=== PATIENT | male | born 1970 | race Caucasian/White ===

== ENCOUNTER 2018-11-05 18:58 | Observation (INO) ==
[2018-11-05 19:29] LABS: BASO# 0.02 X1000 (0.0-0.2); BASO% 0.1 % (0.0-0.8); EOS# 0.02 X1000 (0.0-0.7); EOS% 0.1 % (0.0-10.0); HEMATOCRIT 40.2 % (42.0-52.0); IMM GRAN# 0.06 X1000 (0.0-0.04); IMM GRAN% 0.4 % (0.0-0.5); LYMPH# 0.84 X1000 (1.2-3.4); LYMPH% 5.4 % (20.5-51.1); MCH 30.2 PG (27-31); MCHC 34.8 g/dL (33-37); MCV 86.6 FL (81-99); MONO# 0.99 X1000 (0.11-0.59); MONO% 6.3 % (1.7-9.3); MPV 10.6 FL (7.4-10.4); NEUT# 13.71 X1000 (1.4-6.5); NEUT% 87.7 % (42.2-75.2); PLT 279 X1000 (130-400); RBC 4.64 XMIL (4.7-6.1); RDW 13.5 % (11.5-14.5); WBC 15.64 X1000 (4.8-10.8)
[2018-11-05 19:59] LABS: AGAP 18; BUN 20 mg/dL (8-22); CALCIUM 9.5 mg/dL (8.8-10.2); CHLORIDE 97 mmol/L (98-107); COSMO 277; CREATININE 1.1 mg/dL (0.7-1.2); ESTIMATED GFR > 60; GLUCOSE 140 mg/dL (70-104); POTASSIUM 3.2 mmol/L (3.5-5.1); SODIUM 136 mmol/L (136-145); TCO2 21 mmol/L (25-35); TOTAL BILIRUBIN 0.58 mg/dL (0.20-1.00)
[2018-11-05 20:00] LABS: ALB/GLOB RATIO 0.9; ALBUMIN 3.8 g/dL (3.5-5.0); ALKALINE PHOSPHATASE 95 U/L (32-122); GOT 13 U/L (10-34); GPT 17 U/L (10-44)
[2018-11-05] MEDS ORDERED: KLOR-CON PO ONE (20:46)
[2018-11-05] MEDS ORDERED: NS 1,000 ML IV ONE (21:22)
[2018-11-05] MEDS ORDERED: VANCOMYCIN 1 GM/NS 1 GM/250 ML IVPB IV ONE ×2 (21:23→22:08)
--- NOTE | 2018-11-05 21:46 | PROVIDER DOCUMENTATION ---
This chart was entered by Farida Nguyen Scribe, acting as scribe for Julia Ryan MD. HPI-Rash/Wound/ReCheck - General Chief Complaint: Male Stated Complaint: MALE Time Seen by Provider: 11/05/18 20:41 Source: patient Allergies/Adverse Reactions: Allergies Allergy/AdvReac Type Severity Reaction Status Date / Time No Known Allergies Allergy Verified 11/05/18 21:36 Home Medications: Home Medication List Medication Instructions Recorded Confirmed Last Taken Type Varenicline [Chantix] 0.5 mg PO BID 01/22/18 01/22/18 Unknown History Colchicine [Colcrys] 0.6 mg PO DAILY #30 tab 01/25/18 Unknown Rx Meloxicam [Mobic] 7.5 mg PO DAILY #30 tab 01/25/18 Unknown Rx Methylprednisolone [Medrol Dosepak] 4 mg PO DIRECTED #1 pkg 01/25/18 Unknown Rx - History of Present Illness-Dermatology Nature of Presenting Problem: pt is a 48 yr old male presenting with abscess to low abdomen, suprapubic area. pt reports he had shaved the area approx 1 month ago, after shaving he developed a bump that grew larger and more painful, pt went to ER 2 days ago and was prescribed clindamycin, pt reports no improvement, area has become even larger, redder and more painful since beginning abx. Denies any fevers Location: reports: other (low abdomen, pubis) Quality: reports: painful Severity: reports: severe Onset/Duration: reports: gradual Timing: reports: changing over time, getting worse Context/Associated Symptoms: reports: abscess Identifiable cause?: No Exposure: reports: unknown cause Locality of Occurance: Home Similar Symptoms Previously?: Yes Recently seen or treated by another doctor?: Yes (seen 2 days ago at [facility] for same) - Recheck Treated days ago.: 2 Antibiotics given: prescription Symptoms since procedure:: reports: pain, fever/chills, redness. denies: discharge, numbness Review of Systems - Adult - REVIEW OF SYSTEMS - ADULT Constitutional: reports: chills, fatique. denies: fever Eyes: reports: no symptoms reported Ears, Nose, Mouth & Throat: reports: no symptoms reported Cardiovascular: reports: no symptoms reported Respiratory: reports: no symptoms reported Gastrointestinal: reports: no symptoms reported Genitourinary: reports: no symptoms reported Musculoskeletal: reports: no symptoms reported Integumentary: reports: skin sores/ulcer Neurological: reports: no symptoms reported Psychiatric: reports: no symptoms reported Endocrine: reports: no symptoms reported Hematologic/Lymphatic: reports: no symptoms reported Allergic/Immunologic: reports: no symptoms reported All Other Systems: Reviewed and Negative Past History - Adult - PAST MEDICAL HISTORY-ADULT Review of Records: reports: Old Records Reviewed, Nursing Assessment Review, Medications Reviewed, Social history reviewed & non-contributory. Major Childhood Illnesses: reports: denies history Cardiovascular: reports: denies history Respiratory: reports: denies history Gastrointestinal: reports: denies history Obstetrical/Gynecological: reports: denies history Genitourinary: reports: denies history Musculoskeletal: reports: denies history Neurological: reports: denies history Endocrine/Immune: reports: denies history Other Conditions: reports: denies history - PRIOR SURGERIES/PROCEDURES Surgical/Procedure History: reports: orthopedic (extremity) (knee scope), other - IMMUNIZATION STATUS Childhood Immunizations: See Nurse Assessment Flu Vaccine: See Nurse Assessment - FAMILY HISTORY Family History: reviewed, not pertinent - SOCIAL HISTORY Living Situation: friend Physical Exam-General - PHYSICAL EXAM-ADULT Initial Vital Signs Reviewed: Yes - CONSTITUTIONAL General Appearance: alert, no apparent distress, obese - EYES Eyes: PERRL/EOMI - HEAD, EARS, NOSE, MOUTH & THROAT HENMT: normocephalic/atraumatic, moist mucous membranes - NECK Neck: non-tender, full range of motion, supple, normal inspection - RESPIRATORY Respiratory: chest non-tender, lungs clear, normal breath sounds, no respiratory distress, no accessory muscle use - CARDIOVASCULAR Cardiovascular: normal peripheral pulses, tachycardia - GASTROINTESTINAL (ABDOMEN) Abdominal Exam: normal bowel sounds, soft, tenderness (around cellulitis) - MUSCULOSKELETAL Back Exam: normal inspection Extremity: normal range of motion, normal inspection - SKIN Integumentary: warm/dry, erythema, tenderness, warm, other (large area of warmth, erythema and induration noted to pannus and right low abdomen, with multiple scabs in area, no drainage or fluctuance noted to area.) - NEUROLOGIC Neurologic: grossly normal - PSYCHIATRIC Psych/Mental Status: normal mood/affect, oriented x 3 Progress - PLAN OF CARE/RESULTS Progress/Plan/Lab Results: Vital Signs - 8 hr 07/11/19 19:10 Temperature 98.9 F Pulse Rate 116 H Respiratory Rate 20 Blood Pressure 143/88 O2 Sat by Pulse Oximetry 97 Laboratory Results - last 24 hr 11/05/18 11/05/18 19:11 19:11 WBC 15.64 H RBC 4.64 L Hgb 14.0 Hct 40.2 L MCV 86.6 MCH 30.2 MCHC 34.8 RDW Std Deviation 13.5 Plt Count 279 MPV 10.6 H Immature Gran % (Auto) 0.4 Neut % (Auto) 87.7 H Lymph % (Auto) 5.4 L Lawrence % (Auto) 6.3 Eos % (Auto) 0.1 Baso % (Auto) 0.1 Immature Gran # (Auto) 0.06 H Neut # (Auto) 13.71 H Lymph # (Auto) 0.84 L Lawrence # (Auto) 0.99 H Eos # (Auto) 0.02 Baso # (Auto) 0.02 Sodium 136 Potassium 3.2 L Chloride 97 L Carbon Dioxide 21 L Anion Gap 18 BUN 20 Creatinine 1.1 Estimated GFR/1.73 m2 > 60 BUN/Creatinine Ratio 18 Glucose 140 H Calculated Osmolality 277 Calcium 9.5 Total Bilirubin 0.58 AST 13 ALT 17 Alkaline Phosphatase 95 Total Protein 8.0 Albumin 3.8 Globulin 4.2 Albumin/Globulin Ratio 0.9 Orders Category Date Time Status BLOOD CULTURE [BLDCUL] Stat Lab 11/05/18 19:11 Ordered CBC WITH DIFF [HEME] Stat Lab 11/05/18 19:11 Completed CMP [COMPREHENSIVE METABOLIC PANEL] [CHEM] Stat Lab 11/05/18 19:11 Completed LACTATE, PLASMA [CHEM] Stat Lab 11/05/18 21:22 Uncollected URINALYSIS W/POSS RFLX CULT [URINALYSIS] Stat Lab 11/05/18 21:22 Uncollected URINE DRUG SCREEN Stat Lab 11/05/18 21:23 Uncollected 0.9% Sodium Chloride Inj [Ns] 1,000 ml Med 11/05/18 21:22 Active IV 999 mls/hr Potassium Chloride E.r. [Klor-Con] Med 11/05/18 20:46 Discontinued 40 meq PO NOW ONE Vancomycin 1 gm/Ns Med 11/05/18 21:23 Active 1 gm in 250 ml IV NOW Patient with recent antibiotic outpatient with clindamycin. Failed outpatient. WBC to 15, Tachy to 115 upon arrival, tracking up abdomen. Will admit for IV antibiotics. Spoke to Dr Madison, animal control licensing worker for hospitalist who accepted patient for admission. Further orders to be placed by hospitalist team. Result Diagrams: 11/05/18 19:11 11/05/18 19:11 - CONSULTS/PCP/HOSPITALIST Notification #1 *Consult/PCP/Hospitalist*: Dr Madison Time Discussed: 21:51 Consult Disposition: Admit Departure - Departure Date of Disposition Decision: 11/05/18 Time of Disposition Decision: 21:45 DIAGNOSIS: Abscess or cellulitis of groin, Hypokalemia, Leukocytosis, SIRS (systemic inflammatory response syndrome) Disposition: ADMITTED INPATIENT 09 Certified Medical Emergency: Emergent Condition: Stable Referrals and Follow-Ups: None,PCP [Primary Care Provider] - - Critical Care Note This patient required my direct & personal management of CC.: No Attestation - Physician/ ENID Attestation Patient care was provided by Advanced Practice Provider:: No The physician spent face to face time with patient:: Yes Advanced Practice Provider documentation review:: Supervising physician onsite and consulted in the evaluation and care of this patient. The physician did have a face to face encounter with the patient. This chart was documented by the indicated scribe, (Farida Nguyen Scribe) and accurately reflects the services I performed and decisions made by me, Julia Ryan MD, as attested by the provider's signature.
[2018-11-05] MEDS ORDERED: MORPHINE IV ONE (22:03)
[2018-11-05] MEDS ORDERED: TORADOL IV ONE (22:04)
[2018-11-05 22:24] LABS: URINE SOURCE CLEAN CATCH
[2018-11-05 22:52] LABS: UR AMPHETAMINES QUAL PRESUMPTIVE POSITIVE (NONE DETECT); UR BARBITUATES QUAL NONE DETECTED (NONE DETECT); UR BENZODIAZEPIN QUAL NONE DETECTED (NONE DETECT); UR CANNABINOIDS QUAL PRESUMPTIVE POSITIVE (NONE DETECT); UR COCAINE QUAL NONE DETECTED (NONE DETECT); UR METHADONE QUAL NONE DETECTED (NONE DETECT); UR OPIATES QUAL NONE DETECTED (NONE DETECT); UR OXYCODONE QUAL NONE DETECTED (NONE DETECT); UR PCP QUAL NONE DETECTED (NONE DETECT); URINE BACTERIA NEGATIVE /HPF; URINE RBC 20-40 /HPF (<10); URINE WBC <10 /HPF (<10)
[2018-11-05] MEDS ORDERED: VANCOMYCIN 2,000 MG in NS 500 ML IV ONE (23:00)
[2018-11-05 23:02] LABS: BILIRUBIN URINE SMALL (NEGATIVE); COLOR YELLOW; GLUCOSE URINE NEGATIVE (NEGATIVE); KETONE URINE TRACE mg/dL (NEGATIVE); TURBIDITY URINE HAZY (CLEAR); URINE CASTS GRANULAR PRESENT; URINE CRYSTALS NONE SEEN; URINE SMALL ROUND CELLS NONE SEEN; URINE YEAST NONE SEEN
[2018-11-05 23:03] LABS: BLOOD URINE MODERATE (NEGATIVE); PROTEIN URINE 300 mg/dL (NEGATIVE); SP GRAVITY URINE 1.034
[2018-11-05 23:04] LABS: LEUKOCYTES URINE NEGATIVE (NEGATIVE); NITRITE URINE NEGATIVE (NEGATIVE); UROBILINOGEN URINE 8 mg/dL (NORMAL)
[2018-11-06 00:02] LABS: HEMOGLOBIN A1C 5.6 % (4.8-6.0)
[2018-11-06 00:22] LABS: UR EPITHELIAL CELLS <10 /HPF (<10)
[2018-11-06] MEDS ORDERED: ZOFRAN IV PRN (01:34)
[2018-11-06] MEDS ORDERED: VANCOMYCIN IV PER PHARMACY MISC SCH (01:34)
--- NOTE | 2018-11-06 01:44 | HISTORY AND PHYSICAL ---
PRIMARY CARE PHYSICIAN: None. REASON FOR ADMISSION: Three-day history of painful, erythematous rash of the groin and belly. HISTORY OF PRESENT ILLNESS: Mr. Warner Lane is a 48-year-old, male, with past medical history of COPD, tobacco use, gout. Reports that he has been working out in the sun for the last couple of weeks, and noticed 3 days ago in early hours of the morning, that he had an area of redness which was very tender in his right groin area. He says that about 4 hours later, he noticed another area of redness in the right lower umbilical area. He noticed during the course of the day that these areas of redness increased in size and became more painful. The following day, he said he started having fever and chills and was diaphoretic. He sought care at [facility] where he was given clindamycin yesterday. Despite taking these medications, he says the redness has progressed and the pain has gotten worse. He denies any bite from any insect. He said he had scratched around those areas a few days ago, but other than that, no overt bruising or trauma to that area. REVIEW OF SYSTEMS: Negative for any cardiorespiratory, GI, complaints. No neurological symptoms of a focal nature. No polyuria or polydipsia. No other rash or arthralgia. Otherwise, a 12-system review was done. Positive findings per HPI. ALLERGIES: None. MEDICATIONS: None. SURGICAL HISTORY: He has had right orbital fracture with subsequent repair and arthroscopic knee evaluation. SOCIAL HISTORY: Smokes about a pack a day. No alcohol or drug use. Lives with his girlfriend. FAMILY HISTORY: Notable for diabetes in his daughter and heart disease in one of his parents. LABORATORY: White count 15,000, hemoglobin and hematocrit 14 and 40, platelets 279,000, neutrophils 87%. Potassium 3.2, BUN 20, creatinine 1.1, glucose 140, lactate is normal. UDS positive for amphetamines, cannabis. Urinalysis, he has 20-40 WBCs, moderate blood, trace ketones. PHYSICAL EXAMINATION: GENERAL: A middle-aged, man, who is in mild distress from the pain in his groin and abdomen superficially. He is alert and oriented to person, place, and time. Normal mood and affect. HEENT: Head is normocephalic, atraumatic. Eyes, PERRL, EOMI. He is anicteric, not pale. ENT and oropharynx exam is normal. NECK: Supple. No JVD or carotid bruit. No thyromegaly. CHEST: Clear when auscultated. Good air entry in both lung clemens. CARDIOVASCULAR: First and second heart sounds heard. No gallops, murmurs, rubs. Rhythm is regular. ABDOMEN: No mass or organomegaly. Bowel sounds normal. No focal areas of tenderness, except there is an area measuring about 7 cm in the long axis x 4 cm in the short axis of erythema just below the umbilicus. It is very tender to touch, warm. No overt areas of breakdown. It is not indurated. There is tenderness to the slightest touch. No crepitus palpated. There is also another area of redness in the right inguinal area extending to the pubic area. There is no crepitus or induration. No abscess formation. No areas of exudation or ulceration. There are numerous small areas of erythema with central crusted areas which are ulcerated. These are less than 0.5 cm in area. The patient has mild exfoliated area in the right groin intertriginous area suggestive of either erythrasma versus tinea cruris. No other areas of erythema or skin breakdown in the perineal area, scrotum, penis, or gluteal areas. RECTAL: Exam deferred. EXTREMITIES: The patient has good distal pulses bilaterally. They are symmetrical, regular. No edema, clubbing, or cyanosis. NEUROLOGIC: No gross focal deficits. SKIN: See above. MUSCULOSKELETAL: Grossly normal. ASSESSMENT: At this time is: 1. Right pubic/groin/anterior abdominal wall cellulitis. 2. Hypokalemia, ? from moderate adrenergic effects from pain. 3. Hyperglycemia. Rule out subclinical diabetes. 4. History of gout. 5. Tobacco use. PLAN: Start patient on vancomycin 20 mg/kg for maximum dose of 2 g now and Pharmacy to dose. Also, add on a beta-lactam should in case this be secondary to Streptococcus or MSSA. This is because vancomycin is a relatively weak antibiotic against MSSA or Streptococcus, and a beta- lactam is much more potent. Will treat patient symptomatically for pain, screen him for diabetes, and correct hypokalemia. Smoking cessation was offered. Patient is not willing to quit at this point in time. cc: Maureen Madison MD
[2018-11-06 02:54] LABS: BASO# 0.02 X1000 (0.0-0.2); BASO% 0.1 % (0.0-0.8); EOS# 0.02 X1000 (0.0-0.7); EOS% 0.1 % (0.0-10.0); HEMATOCRIT 37.1 % (42.0-52.0); HEMOGLOBIN 12.9 g/dL (14.0-18.0); IMM GRAN# 0.05 X1000 (0.0-0.04); IMM GRAN% 0.3 % (0.0-0.5); LYMPH# 1.07 X1000 (1.2-3.4); LYMPH% 7.4 % (20.5-51.1); MCH 30.3 PG (27-31); MCHC 34.8 g/dL (33-37); MCV 87.1 FL (81-99); MONO# 1.31 X1000 (0.11-0.59); MONO% 9.1 % (1.7-9.3); MPV 10.1 FL (7.4-10.4); NEUT# 11.94 X1000 (1.4-6.5); PLT 268 X1000 (130-400); RBC 4.26 XMIL (4.7-6.1); RDW 13.5 % (11.5-14.5); WBC 14.41 X1000 (4.8-10.8)
[2018-11-06] MEDS: MORPHINE IV PRN ×2 (02:59→16:01)
[2018-11-06] MEDS: TYLENOL PO SCH ×4 (03:02→22:21)
[2018-11-06] MEDS: MOTRIN PO SCH ×4 (03:02→22:21)
[2018-11-06] MEDS: ROCEPHIN 1 GM in NS 50 ML IV SCH (03:02)
[2018-11-06] MEDS: LOVENOX SUBQ SCH (03:03)
[2018-11-06] MEDS: NS 1,000 ML IV SCH ×3 (03:04→09:03)
[2018-11-06 03:12] LABS: INR 1.06; PROTIME 14.6 Seconds (11.0-16.0)
[2018-11-06 03:13] LABS: PTT 37.6 Seconds (22.3-41.8)
[2018-11-06 03:28] LABS: AGAP 13; ALB/GLOB RATIO 1.2; ALBUMIN 3.4 g/dL (3.5-5.0); ALKALINE PHOSPHATASE 88 U/L (32-122); BUN 17 mg/dL (8-22); CALCIUM 8.7 mg/dL (8.8-10.2); CHLORIDE 99 mmol/L (98-107); CK PROFILE 32 U/L (24-204); COSMO 277; CREATININE 1.1 mg/dL (0.7-1.2); ESTIMATED GFR > 60; GLUCOSE 130 mg/dL (70-104); GOT 12 U/L (10-34); GPT 16 U/L (10-44); POTASSIUM 2.9 mmol/L (3.5-5.1); SODIUM 137 mmol/L (136-145); TCO2 25 mmol/L (25-35); TOTAL BILIRUBIN 0.49 mg/dL (0.20-1.00); TOTAL PROTEIN 6.2 g/dL (6.3-8.3)
[2018-11-06] MEDS: NICODERM PATCH TD SCH (04:30)
--- NOTE | 2018-11-06 07:19 | Diag Imaging Result Doc PS360 ---
EXAM: CHEST-1 VIEW 11/06/2018 HISTORY: sepsis protocol TECHNIQUE: AP portable at 0 to 48 hours COMMENT: There is no evidence of acute cardiac or pulmonary disease. Compared to 07/28/2018 there has been no significant change. IMPRESSION: No acute disease. Electronically signed by Vasquez Gresham 11/06/2018 7:17 AM
[2018-11-06] MEDS: OXY IR PO PRN ×2 (07:38→13:29)
[2018-11-06 07:39] LABS: BASO# 0.02 X1000 (0.0-0.2); BASO% 0.1 % (0.0-0.8); EOS# 0.07 X1000 (0.0-0.7); EOS% 0.5 % (0.0-10.0); HEMATOCRIT 34.3 % (42.0-52.0); HEMOGLOBIN 11.7 g/dL (14.0-18.0); IMM GRAN# 0.03 X1000 (0.0-0.04); IMM GRAN% 0.2 % (0.0-0.5); LYMPH# 1.22 X1000 (1.2-3.4); MCH 30.2 PG (27-31); MCHC 34.1 g/dL (33-37); MCV 88.4 FL (81-99); MONO# 1.23 X1000 (0.11-0.59); MPV 10.8 FL (7.4-10.4); NEUT# 11.06 X1000 (1.4-6.5); NEUT% 81.2 % (42.2-75.2); PLT 252 X1000 (130-400); RBC 3.88 XMIL (4.7-6.1); RDW 13.5 % (11.5-14.5); WBC 13.63 X1000 (4.8-10.8)
[2018-11-06] MEDS: KLOR-CON PO SCH ×2 (07:46→10:18)
[2018-11-06 07:53] LABS: AGAP 14; BUN 17 mg/dL (8-22); CALCIUM 8.7 mg/dL (8.8-10.2); CHLORIDE 102 mmol/L (98-107); COSMO 279; CREATININE 1.1 mg/dL (0.7-1.2); ESTIMATED GFR > 60; GLUCOSE 133 mg/dL (70-104); POTASSIUM 3.2 mmol/L (3.5-5.1); SODIUM 138 mmol/L (136-145); TCO2 22 mmol/L (25-35)
[2018-11-06 07:59] LABS: CHOLESTEROL 147 mg/dL (0-200); HDL 7 mg/dL (35-55); LDL 63 mg/dL; TRIGLYCERIDES 385 mg/dL (39-160); VLDL 77 mg/dL
[2018-11-06] MEDS ORDERED: NICODERM PATCH TD SCH (09:00)
[2018-11-06] MEDS: POTASSIUM CHLORIDE 20 MEQ/SWI 20 MEQ/100 ML IVPB IV SCH ×3 (11:57→16:20)
[2018-11-06] MEDS: VANCOMYCIN 2,000 MG in NS 500 ML IV SCH (13:24)
[2018-11-06 14:47] LABS: URINE SOURCE CLEAN CATCH
[2018-11-06 14:50] LABS: BILIRUBIN URINE SMALL (NEGATIVE); BLOOD URINE MODERATE (NEGATIVE); COLOR YELLOW; GLUCOSE URINE NEGATIVE (NEGATIVE); KETONE URINE NEGATIVE (NEGATIVE); LEUKOCYTES URINE NEGATIVE (NEGATIVE); NITRITE URINE NEGATIVE (NEGATIVE); PROTEIN URINE 200 mg/dL (NEGATIVE); SP GRAVITY URINE 1.032; TURBIDITY URINE HAZY (CLEAR); UROBILINOGEN URINE 6 mg/dL (NORMAL)
[2018-11-06 14:53] LABS: UR EPITHELIAL CELLS <10 /HPF (<10); URINE BACTERIA NEGATIVE /HPF; URINE RBC <10 /HPF (<10); URINE WBC <10 /HPF (<10)
[2018-11-06 15:04] LABS: URINE YEAST NONE SEEN
--- NOTE | 2018-11-06 22:14 | PROGRESS NOTE ---
DATE: 11/06/2018 BRIEF PROGRESS NOTE: Patient with still some tenderness and erythema of the right pubis/lower abdomen. He reports improvement in both of these. This seems to be less erythematous than previously described. Still some excoriated areas in a follicular distribution. No fever or chills today. Continuing antibiotics and monitoring. If he continues to improve, then may be able to consider transition to p.o. antibiotics and discharging him in the next 24 to 48 hours. The patient continues to refuse tobacco cessation. A1c was 5.6, suggesting that his hyperglycemia was a stress response rather than diabetes.
[2018-11-06] MEDS ORDERED: VANCOMYCIN 2,000 MG in NS 500 ML IV SCH (23:00)
[2018-11-07] MEDS: OXY IR PO PRN (00:04)
[2018-11-07] MEDS: VANCOMYCIN 2,000 MG in NS 500 ML IV SCH ×2 (00:05→13:00)
[2018-11-07] MEDS: MORPHINE IV PRN ×2 (01:11→12:59)
[2018-11-07] MEDS: NICODERM PATCH TD SCH (03:22)
[2018-11-07] MEDS: LOVENOX SUBQ SCH (03:23)
[2018-11-07] MEDS: ROCEPHIN 1 GM in NS 50 ML IV SCH (03:23)
[2018-11-07] MEDS: MOTRIN PO SCH ×4 (03:23→20:29)
[2018-11-07] MEDS: TYLENOL PO SCH ×4 (03:23→20:29)
--- NOTE | 2018-11-07 20:09 | PROGRESS NOTE ---
DATE: 11/07/2018 INTERVAL HISTORY: The patient is still with some pubic tenderness, but improving from previous. Afebrile. No new complaints. No acute events overnight. REVIEW OF SYSTEMS: Twelve point review of systems negative except as per interval history. LABS: WBC 14.4, hemoglobin 12.9, hematocrit 37.1, platelets 268,000. Sodium 137, potassium 2.9, glucose 130, creatinine 1.1. VITALS: T-max 99.7 degrees, pulse 66, respirations 20, blood pressure 135/72, O2 saturation 97% on room air. PHYSICAL EXAMINATION: General: No acute distress. Vitals: As above. HEENT: Normocephalic, atraumatic. Moist mucous membranes. No cervical adenopathy. Cardiac: Regular rate and rhythm. No murmurs noted. Pulmonary: Clear to auscultation bilaterally. No wheezing, rales, or rhonchi. Abdomen: Soft, nontender, nondistended. Bowel sounds positive. Extremities: Peripheral pulses intact. No clubbing, cyanosis, or edema. Neurologic: Cranial nerves grossly intact. No focal deficits identified. Psychiatric: Normal mood and affect. Awake, alert, oriented x3. Skin: Erythema of lower abdomen and pubis markedly improved. Still some tenderness and slight induration of pubis. In areas where erythema has improved, there are some slightly darkened, thickened areas consistent with fungal infection. Still some excoriated areas in a follicular distribution. ASSESSMENT AND PLAN: 1. Cellulitis and folliculitis of the lower abdomen and groin. Still some fairly significant tenderness. Still some erythema, although improving significantly. Continue vancomycin, Rocephin for now. If he continues to improve, then can hopefully transition to oral antibiotics tomorrow. 2. Fungal skin infection. We will start some nystatin powder and monitor. 3. Tobacco abuse. Continue nicotine patch. 4. COPD, stable at this time. Monitor. 5. Hypokalemia. Will replete and continue to monitor. 6. Blood cultures. Initial blood cultures positive but finalized to coag-negative staph. Therefore, likely a contaminant. Repeat blood cultures remain negative.
[2018-11-07] MEDS: NORCO-5 PO PRN (20:30)
[2018-11-07] MEDS: MYCOSTATIN POWDER TOP SCH (20:38)
[2018-11-08] MEDS: VANCOMYCIN 2,000 MG in NS 500 ML IV SCH (01:22)
[2018-11-08] MEDS: LOVENOX SUBQ SCH (03:17)
[2018-11-08] MEDS: NORCO-5 PO PRN ×2 (03:17→10:17)
[2018-11-08] MEDS: NICODERM PATCH TD SCH (03:17)
[2018-11-08] MEDS: ROCEPHIN 1 GM in NS 50 ML IV SCH (06:42)
[2018-11-08 08:58] VITALS: BP 130/81
[2018-11-08] MEDS: MYCOSTATIN POWDER TOP SCH (10:18)
[2018-11-08 11:31] LABS: HEMATOCRIT 33.2 % (42.0-52.0); HEMOGLOBIN 11.5 g/dL (14.0-18.0); MCH 30.2 PG (27-31); MCHC 34.6 g/dL (33-37); MCV 87.1 FL (81-99); MPV 10.3 FL (7.4-10.4); RBC 3.81 XMIL (4.7-6.1); RDW 13.8 % (11.5-14.5); WBC 11.09 X1000 (4.8-10.8)
[2018-11-08 12:06] LABS: AGAP 12; BUN 17 mg/dL (8-22); CALCIUM 8.8 mg/dL (8.8-10.2); CHLORIDE 107 mmol/L (98-107); COSMO 285; ESTIMATED GFR > 60; GLUCOSE 100 mg/dL (70-104); POTASSIUM 3.8 mmol/L (3.5-5.1); SODIUM 142 mmol/L (136-145); TCO2 23 mmol/L (25-35)
[2018-11-09] MEDS ORDERED: VANCOMYCIN 2,000 MG in NS 500 ML IV SCH (06:00)
--- NOTE | 2018-11-10 12:48 | DISCHARGE SUMMARY ---
ADMISSION DATE: 11/05/2018 DISCHARGE DATE: 11/08/2018 ADMISSION DIAGNOSES: 1. Right pubic/groin/anterior abdominal wall cellulitis. 2. Hypokalemia, questionable from moderate antienergic affects from pain. 3. Hyperglycemia, rule out subclinical diabetes. 4. History of gout. 5. Tobacco use. DISCHARGE DIAGNOSES: 1. Cellulitis and folliculitis of the lower abdomen and groin. 2. Fungal skin infection. 3. Tobacco abuse. 4. Chronic obstructive pulmonary disease. 5. Hypokalemia, resolved. PROCEDURES AND FINDINGS: Chest x-ray done on 11/06/2018 shows no acute disease. Blood culture done on 11/05/2018 showed coag-negative Staph in 1 bottle. This was from the right AC. The final was shown to be gram-positive cocci. Subsequent blood cultures were done on 11/06/2018, which showed no growth after 48 hours. White blood cell count initially was noted to be 15.64. On discharge, white blood cell count is noted to be 11.9. On 11/06/2018, potassium level was 3.2, was replaced, and on 11/08/2018, potassium level is now 3.8. HOSPITAL COURSE: Mr. Warner Lane is a 48-year-old male who presented with a medical history of COPD, tobacco use, and gout. He stated that he had been working out in the sun for a couple of weeks, and noticed 3 days ago that he had an area of redness, which was very tender in the right groin area. This area seemed to spread to the umbilical area over the course of a day, and became very painful. He states the following day, he became feverish and started having chills and was diaphoretic. He went to [facility], and was given clindamycin. However, after taking this medication, the redness progressed, and the pain continued to get worse. White blood cell count in the ER was noted to be 15,000. The patient was started on vancomycin and Rocephin IV. White blood cell count has improved to 11,000. The patient was also noted to be hypokalemic on admission with a potassium level of 3.2. Potassium was replaced and is now 3.8 on discharge. The patient is being discharged home today with a prescription of Bactrim and nystatin powder. DISCHARGE LABORATORY DATA: Sodium 142, potassium 3.8, carbon dioxide 23, BUN 17, creatinine 1, GFR is greater than 60, glucose is 100, calcium level is 8.8. Magnesium level is 1.9. White blood cell count 11.09, hemoglobin 11.5, hematocrit 33.2, platelet count is 329,000. PT is 14.6, INR is 1.06. Toxicology was noted positive for amphetamines and marijuana. DISCHARGE MEDICATIONS: Eugene 7.5/325 mg 1 tablet p.o. every 6 hours p.r.n. pain, Bactrim DS 1 tablet p.o. b.i.d., nystatin powder 1 application topical b.i.d., nicotine patch 21 mg transdermal every 24 hours. DISCHARGE DIET: The patient will resume diet as tolerated. DISCHARGE ACTIVITY: The patient will resume normal activity as tolerated. DISPOSITION: The patient was discharged home with self-care. FOLLOWUP: Follow up with primary care physician as needed. Dictated by MIKEY Ivey for Walter Salomon MD cc: Dr. Salomon
== END 2018-11-08 14:07 | disposition home or self-care (01) ==
LOC: ED 18:58 → INTOOBSV 18:59 → 4N 11-06 00:42 → SUATTDRO 11-06 00:42
PROVIDERS: ATTEND Internal Medicine
CPT/HCPCS: 71010; 71045; 80048; 80053; 80061; 80101; 80202; 80301; 80307; 80324; 80345; 80346; 80353; 80358; 80361; 80365; 81001; 82550; 83036; 83605; 83735; 83992; 84484; 85025; 85027; 85610; 85730; 86140; 87040; 94761; A9270; G0431; G0434; G0479; G0480; J0696; J1650; J1885; J2270; J3370; J3480; J7030; J7040